=== PATIENT | female | born 1945 | race Caucasian/White ===

== ENCOUNTER 2018-02-11 18:12 | Emergency (ER) | payer MEDICARE ==
[2018-02-11 18:25] VITALS: BP 168/83; PULSE 86; TEMP 98; BMI 27.4
[2018-02-11] MEDS ORDERED: NAPROXEN 500 MG TABLET (FP) PO ONE (18:54)
[2018-02-11] MEDS ORDERED: NAPROXEN 500 MG TABLET (FP) ONE (18:55)
--- NOTE | 2018-02-11 19:04 | PDOC ---
History of Present Illness - General Chief Complaint: Pain Stated Complaint: KNEE PAIN Time Seen by Provider: 02/11/18 18:33 History Source: Patient Exam Limitations: Clinical Condition - History of Present Illness Initial Comments: 02/11/18 18:58 Patient with history of osteoporosis presented for evaluation of right knee pain status post twisting knee while getting off a van . Patient report feeling a popping sound in the right knee when she stepped down from getting off the van. report increased pain with ambulation. Denies fall. Timing/Duration: 1-3 hours Past History - Past Medical History Allergies/Adverse Reactions: Allergies Allergy/AdvReac Type Severity Reaction Status Date / Time No Known Allergies Allergy Verified 02/11/18 18:24 Home Medications: Ambulatory Orders Alendronate Na [Fosamax (Weekly)] 70 mg PO Q7D 04/16/14 Atorvastatin Ca [Lipitor] 20 mg PO HS 04/16/14 Calcium Carbonate [Caltrate 600] 600 mg PO DAILY 04/16/14 Gabapentin 300 mg PO DAILY 04/16/14 Calcium/Magnesium/Vit D3 [Calcium 500 mg Tablet] 1 each PO DAILY 04/29/15 Cholecalciferol (Vitamin D3) [Vitamin D3] 2,000 unit PO DAILY 04/29/15 FA/Mv,Ca,Iron,Min/Lycopene/Lut [Centrum Tablet] 1 each PO DAILY 04/29/15 [place]-3/Dha/Epa/Fish Oil [[place]-3 Fish Oil Softgel] 1 each PO DAILY 04/29/15 Ranitidine HCl [Zantac] 150 mg PO BID #0 tablet 04/29/15 Naproxen 500 mg PO BID PRN #20 tablet 02/11/18 Anemia: No Asthma: No Cancer: No Cardiac Disorders: No CVA: No COPD: No CHF: No Dementia: No Diabetes: No GI Disorders: Yes (GERD/POLYPS/HEMORRHOIDS) Disorders: No HTN: No Hypercholesterolemia: Yes Liver Disease: No Seizures: No Thyroid Disease: No - Surgical History Abdominal Surgery: No Appendectomy: No Cardiac Surgery: No Cholecystectomy: No Lung Surgery: No Neurologic Surgery: No Orthopedic Surgery: Yes (ROTATOR CUFF) - Suicide/Smoking/Psychosocial Hx Smoking History: Never smoked Hx Alcohol Use: No Drug/Substance Use Hx: No Substance Use Type: None Hx Substance Use Treatment: No Review of Systems - Review of Systems Able to Perform ROS?: Yes Is the patient limited Tongan proficient: No Constitutional: No: Weakness HEENTM: No: Double Vision Respiratory: No: Symptoms reported Cardiac (ROS): No: Symptoms Reported ABD/GI: No: Symptoms Reported Musculoskeletal: Yes: See HPI, Joint Pain (right knee), Muscle Pain (right knee) . No: Joint Swelling, Muscle Weakness, Joint Stiffness Neurological: No: Dizziness All Other Systems: Reviewed and Negative *Physical Exam - Vital Signs Last Vital Signs Temp Pulse Resp BP Pulse Ox 98 F 86 18 168/83 99 02/11/18 18:21 02/11/18 18:21 02/11/18 18:21 02/11/18 18:21 02/11/18 18:21 - Physical Exam Comments: 02/11/18 19:02 GENERAL: Well developed, well nourished. Awake and alert. No acute distress. CARDIOVASCULAR: Regular rate and rhythm. No murmurs, rubs, or gallops. PULMONARY: No evidence of respiratory distress. Lungs clear to auscultation bilaterally. No wheezing, rales or rhonchi. ABDOMINAL: Soft. Non-tender. Non-distended. No rebound or guarding. No organomegaly. Normoactive bowel sounds MUSCULOSKELETAL : mild tenderness over medila and lateral malleolus of right knee. No bony deformities EXTREMITIES: No cyanosis. No clubbing. No edema. No calf tenderness. NEUROLOGICAL: Alert, awake, appropriate. No motor deficits in the lower extremities. Gait with mild limping. PSYCHIATRIC: Cooperative. Good eye contact. Appropriate mood and affect. 02/11/18 19:03 General Appearance: Yes: Nourished, Appropriately Dressed. No: Apparent Distress Medical Decision Making - Medical Decision Making 02/11/18 19:04 Patient with history of osteoporosis presented for evaluation of right knee pain status post twisting knee while getting off a van. exam significant for mild tenderness to medial and lateral collateral ligament. x-ray of right knee shows no acute fracture, dislocation or soft tissue swelling naproxen 500mg PO given for pain right knee wrapped with jorden bandage patient discharged home on Naproxen with orthopedics follow-up *DC/Admit/Observation/Transfer Diagnosis at time of Disposition: Strain of right knee Qualifiers: Encounter type: initial encounter Qualified Code(s): S86.911A - Strain of unspecified muscle(s) and tendon(s) at lower leg level, right leg, initial encounter - Discharge Dispostion Disposition: HOME Condition at time of disposition: Stable Decision to Admit order: No - Prescriptions Prescriptions: Naproxen 500 mg PO BID PRN #20 tablet PRN Reason: knee pain - Referrals Referrals: Geeta Jorge MD [Primary Care Provider] - Curtis Overton MD [Staff Physician] - - Patient Instructions Printed Discharge Instructions: Knee Sprain, How to Use an Elastic Bandage- Knee Sprain Additional Instructions: Your x-ray was negative for fracture. Take prescribed medications as needed for pain. follow-up with referred orthopedics if pain persist for more than 4 days - Post Discharge Activity
== END 2018-02-11 19:29 | disposition home or self-care (01) ==
LOC: JERFT 18:12
DX: S86.811A Strain of other muscle(s) and tendon(s) at lower leg level, right leg, initial encounter (principal); V58.4XXA Person boarding or alighting a pick-up truck or van injured in noncollision transport accident, initial encounter; Y92.488 Other paved roadways as the place of occurrence of the external cause; Y93.89 Activity, other specified; Y99.8 Other external cause status; E78.00 Pure hypercholesterolemia, unspecified
CPT/HCPCS: 73562-TC-RT-FY; 99281-25

== ENCOUNTER 2019-04-27 18:18 | Emergency (ER) | payer MEDICARE ==
[2019-04-27 18:34] VITALS: BP 161/87; PULSE 84; TEMP 98.2; BMI 24.4
--- NOTE | 2019-04-27 18:46 | PDOC ---
History of Present Illness - General Chief Complaint: Cold Symptoms Stated Complaint: FEVER Time Seen by Provider: 04/27/19 18:31 History Source: Patient, Family - History of Present Illness Timing/Duration: reports: other Past History - Past Medical History Allergies/Adverse Reactions: Allergies Allergy/AdvReac Type Severity Reaction Status Date / Time No Known Allergies Allergy Verified 02/11/18 18:24 Home Medications: Ambulatory Orders Alendronate Na [Fosamax (Weekly)] 70 mg PO Q7D 04/16/14 Atorvastatin Ca [Lipitor] 20 mg PO HS 04/16/14 Calcium Carbonate [Caltrate 600] 600 mg PO DAILY 04/16/14 Gabapentin 300 mg PO DAILY 04/16/14 Calcium/Magnesium/Vit D3 [Calcium 500 mg Tablet] 1 each PO DAILY 04/29/15 Cholecalciferol (Vitamin D3) [Vitamin D3] 2,000 unit PO DAILY 04/29/15 FA/Mv,Ca,Iron,Min/Lycopene/Lut [Centrum Tablet] 1 each PO DAILY 04/29/15 [place]-3/Dha/Epa/Fish Oil [[place]-3 Fish Oil Softgel] 1 each PO DAILY 04/29/15 Ranitidine HCl [Zantac] 150 mg PO BID #0 tablet 04/29/15 Naproxen 500 mg PO BID PRN #20 tablet 02/11/18 Anemia: No Asthma: No Cancer: No Cardiac Disorders: No CVA: No COPD: No CHF: No Dementia: No Diabetes: No GI Disorders: Yes (GERD/POLYPS/HEMORRHOIDS) Disorders: No HTN: No Hypercholesterolemia: Yes Liver Disease: No Seizures: No Thyroid Disease: No - Surgical History Abdominal Surgery: No Appendectomy: No Cardiac Surgery: No Cholecystectomy: No Lung Surgery: No Neurologic Surgery: No Orthopedic Surgery: Yes (ROTATOR CUFF) - Immunization History Immunization Up to Date: No - Psycho Social/Smoking Cessation Hx Smoking History: Never smoked Have you smoked in the past 12 months: No Information on smoking cessation initiated: No Hx Alcohol Use: No Drug/Substance Use Hx: No Substance Use Type: None Hx Substance Use Treatment: No Review of Systems - Review of Systems Constitutional: Yes: Fever Respiratory: Yes: Cough. No: Shortness of Breath, Wheezing Cardiac (ROS): No: Chest Pain ABD/GI: No: Diarrhea, Nausea, Vomiting *Physical Exam - Vital Signs Last Vital Signs Temp Pulse Resp BP Pulse Ox 98.2 F 84 16 161/87 98 04/27/19 18:31 04/27/19 18:31 04/27/19 18:31 04/27/19 18:31 04/27/19 18:31 - Physical Exam General Appearance: Yes: Appropriately Dressed. No: Apparent Distress HEENT: positive: Normal ENT Inspection, Normal Voice, TMs Normal, Pharynx Normal. negative: Scleral Icterus (R), Scleral Icterus (L) Neck: positive: Supple. negative: Lymphadenopathy (R), Lymphadenopathy (L) Respiratory/Chest: positive: Lungs Clear, Normal Breath Sounds. negative: Respiratory Distress Cardiovascular: positive: Regular Rate, S1, S2 Integumentary: positive: Dry, Warm Neurologic: positive: Fully Oriented, Alert, Normal Mood/Affect ED Treatment Course - RADIOLOGY Radiology Studies Ordered: Category Date Time Status CHEST PA & LAT [RAD] Stat Radiology 04/27/19 18:43 Ordered Medical Decision Making - Medical Decision Making 04/27/19 18:44 73 yo F, h/o HTN, BIB family for cough and fever. Patient states she has had subjective fevers on and off for 2 weeks though no documented fever. Also with mild cough. No shortness of breath, chest pain or body aches. Seen in urgent care 6 days ago and completed a course of antibiotics for "a URI" per family members. No chest x-ray or flu flu swab done per family see exam M/l viral URI Exam wnl -Flu and CXR pending 04/27/19 19:33 Flu and cxr negative. Dc w/ PMD f/u Discharge - Discharge Information Problems reviewed: Yes Clinical Impression/Diagnosis: Viral URI Condition: Good Disposition: HOME - Follow up/Referral - Patient Discharge Instructions Patient Printed Discharge Instructions: DI for Viral Upper Respiratory Infection -- Adult Additional Instructions: CXR and flu were both negative Please follow up with your PMD - Post Discharge Activity
== END 2019-04-27 19:57 | disposition home or self-care (01) ==
LOC: JERFT 18:18
DX: J06.9 Acute upper respiratory infection, unspecified (principal); B97.89 Other viral agents as the cause of diseases classified elsewhere; Z87.19 Personal history of other diseases of the digestive system
CPT/HCPCS: 71046-TC-FY; 87804; 99281-25

== ENCOUNTER 2021-03-27 14:42 | Emergency (ER) | payer MEDICARE ==
[2021-03-27 14:51] VITALS: BP 150/81; PULSE 91; TEMP 99.1; BMI 29.7
[2021-03-27] MEDS ORDERED: ACETAMINOPHEN 500 MG TABLET (FP) PO ONE (16:32)
[2021-03-27] MEDS ORDERED: ACETAMINOPHEN 500 MG TABLET (FP) ONE (16:42)
[2021-03-27 17:43] LABS: EPI CELLS 16 /uL (0-25.1); HYALINE CASTS 1 /uL (0-3.1); PH,URINE 5.5 (5.0-8.0); URINE APPEARANCE CLEAR; URINE BACTERIA 14 /uL (0-1359); URINE BILIRUBIN NEGATIVE (NEGATIVE); URINE COLOR YELLOW; URINE GLUCOSE (UA) NEGATIVE (NEGATIVE); URINE KETONE 3+ (NEGATIVE); URINE LEUK ESTERASE NEGATIVE (NEGATIVE); URINE NITRITE NEGATIVE (NEGATIVE); URINE PROTEIN 1+ (NEGATIVE); URINE RBC 91 /uL (0-23.9); URINE UROBILINOGEN 0.2 mg/dL (0.2-1.0); URINE WBC 15 /uL (0-25.8)
[2021-03-27] MEDS ORDERED: FAMOTIDINE 20 MG TABLET PO ONE (18:01)
[2021-03-27] MEDS ORDERED: MAG HYDROX/AL HYDROX/SIMETH 30 ML UNIT-DOSE CUP PO ONE (18:01)
[2021-03-27] MEDS ORDERED: LIDOCAINE VISCOUS 2% ORAL/TOP 15 ML UNIT-DOSE CUP MM ONE (18:01)
[2021-03-27] MEDS ORDERED: FAMOTIDINE 20 MG TABLET ONE (18:09)
[2021-03-27] MEDS ORDERED: LIDOCAINE VISCOUS 2% ORAL/TOP 15 ML UNIT-DOSE CUP ONE (18:09)
[2021-03-27] MEDS ORDERED: MAG HYDROX/AL HYDROX/SIMETH 30 ML UNIT-DOSE CUP ONE (18:09)
== END 2021-03-27 21:11 | disposition home or self-care (01) ==
LOC: JER 14:42
DX: B34.9 Viral infection, unspecified (principal)
CPT/HCPCS: 71046-TC-FY; 81003; 87077; 87086; 87804; 99283-25; C9803; U0003; U0005

== ENCOUNTER 2022-04-07 14:14 | Emergency (ER) | payer MEDICARE ==
[2022-04-07 14:47] VITALS: BMI 29.9
[2022-04-07] MEDS ORDERED: MAG HYDROX/AL HYDROX/SIMETH -MYLANTA- ORAL SUSPENSION PO ONE (15:45)
[2022-04-07] MEDS ORDERED: FAMOTIDINE 20 MG/50 ML IVPB 20 MG/50 ML MG IVPB ONE ×2 (15:45→15:52)
[2022-04-07] MEDS ORDERED: ACETAMINOPHEN 1000 MG/100 ML BAG IVPB ONE (15:45)
[2022-04-07] MEDS ORDERED: ACETAMINOPHEN INJECTION 100 ML IVPB ONE (15:51)
[2022-04-07] MEDS ORDERED: MAG HYDROX/AL HYDROX/SIMETH 30 ML UNIT-DOSE CUP ONE (15:52)
[2022-04-07 16:37] LABS: HEMATOCRIT 46.1 % (32.4-45.2); HEMOGLOBIN 15.4 GM/dL (10.7-15.3); MCH 31.6 pg (25.7-33.7); MCHC 33.4 g/dl (32.0-36.0); MEAN CELL VOLUME 94.6 fl (80-96); PLATELET COUNT 255 10^3/uL (134-434); RBC 4.87 M/mm3 (3.60-5.2)
[2022-04-07 16:39] LABS: PH,URINE 5.5 (5.0-8.0); URINE APPEARANCE CLEAR; URINE BILIRUBIN NEGATIVE (NEGATIVE); URINE COLOR YELLOW; URINE GLUCOSE (UA) NEGATIVE (NEGATIVE); URINE KETONE TRACE (NEGATIVE); URINE LEUK ESTERASE NEGATIVE (NEGATIVE); URINE NITRITE NEGATIVE (NEGATIVE); URINE PROTEIN TRACE (NEGATIVE); URINE UROBILINOGEN 0.2 mg/dL (0.2-1.0)
[2022-04-07] MEDS ORDERED: SODIUM CHLORIDE 1,000 ML IV STA (16:45)
[2022-04-07 17:29] LABS: ALBUMIN 4.3 g/dl (3.4-5.0); CALCIUM 9.5 mg/dL (8.5-10.1)
[2022-04-07 17:32] LABS: CREATININE 1.1 mg/dL (0.55-1.3)
[2022-04-07 17:34] LABS: BILIRUBIN,TOTAL 0.6 mg/dL (0.2-1); TOT PROT 8.4 g/dl (6.4-8.2)
[2022-04-07 21:00] VITALS: BP 143/81; PULSE 85; RESP 18; TEMP 99.1
== END 2022-04-07 21:25 | disposition home or self-care (01) ==
LOC: JER 14:14
PROC: 3E033GC Introduction of Other Therapeutic Substance into Peripheral Vein, Percutaneous Approach (ICD-10-PCS; principal; 2022-04-07)
DX: K52.9 Noninfective gastroenteritis and colitis, unspecified (principal)
CPT/HCPCS: 0241U-QW; 36415; 71046-TC-FY; 80053; 81003; 83690; 84484; 85025; 87077; 87086; 93005; 93010; 96361; 96365; 96375; 99285-25

== ENCOUNTER 2022-12-05 13:55 | Emergency (ER) | payer OTHER ==
[2022-12-05 14:01] VITALS: BP 169/72; PULSE 77; RESP 20; TEMP 98.1; BMI 27.8
[2022-12-05] MEDS ORDERED: ACETAMINOPHEN 1000 MG/100 ML BAG IVPB ONE (14:36)
[2022-12-05] MEDS ORDERED: SODIUM CHLORIDE 0.9% 500 ML INFUS.BAG IV ONE (14:36)
[2022-12-05] MEDS ORDERED: ONDANSETRON 4 MG/2 ML VIAL IVPB ONE (14:36)
[2022-12-05] MEDS ORDERED: FAMOTIDINE 20 MG/50 ML IVPB 20 MG/50 ML MG IVPB ONE (14:37)
[2022-12-05] MEDS ORDERED: ACETAMINOPHEN INJECTION 100 ML IVPB ONE (14:48)
[2022-12-05] MEDS ORDERED: FAMOTIDINE 10 MG/ML VIAL IVPB ONE (14:48)
[2022-12-05] MEDS ORDERED: ONDANSETRON 4 MG/2 ML VIAL ONE (14:48)
[2022-12-05 14:59] LABS: BASO % 0.4 % (0-2.0); EOS % 0.3 % (0-4.5); HEMATOCRIT 40.8 % (32.4-45.2); HEMOGLOBIN 13.8 GM/dL (10.7-15.3); LYMPH % 12.9 % (8-40); MCH 31.4 pg (25.7-33.7); MCHC 33.7 g/dl (32.0-36.0); MEAN CELL VOLUME 93.1 fl (80-96); MEAN PLT VOLUME 8.1 fl (7.5-11.1); MONO % 5.9 % (3.8-10.2); NEUT % 80.5 % (42.8-82.8); PLATELET COUNT 236 10^3/uL (134-434); RBC 4.38 M/mm3 (3.60-5.2); RDW 13.2 % (11.6-15.6); WHITE BLOOD COUNT 9.2 K/mm3 (4.0-10.0)
[2022-12-05 15:21] LABS: POTASSIUM 4.1 mmol/L (3.5-5.1)
[2022-12-05 15:24] LABS: ALBUMIN 3.8 g/dl (3.4-5.0); BLOOD UREA NITROGEN 17.9 mg/dL (7-18); MAGNESIUM 2.2 mg/dL (1.8-2.4)
[2022-12-05 15:27] LABS: CREATININE 0.9 mg/dL (0.55-1.3)
[2022-12-05 15:28] LABS: BILIRUBIN,TOTAL 0.5 mg/dL (0.2-1)
[2022-12-05 15:29] LABS: TOT PROT 7.4 g/dl (6.4-8.2)
[2022-12-05 16:33] LABS: URINE APPEARANCE CLEAR; URINE BILIRUBIN NEGATIVE (NEGATIVE); URINE COLOR YELLOW; URINE GLUCOSE (UA) NEGATIVE (NEGATIVE); URINE KETONE 1+ (NEGATIVE); URINE LEUK ESTERASE NEGATIVE (NEGATIVE); URINE NITRITE NEGATIVE (NEGATIVE); URINE PROTEIN NEGATIVE (NEGATIVE); URINE UROBILINOGEN 0.2 mg/dL (0.2-1.0)
== END 2022-12-05 18:24 | disposition home or self-care (01) ==
LOC: JER 13:55
PROC: 3E033GC Introduction of Other Therapeutic Substance into Peripheral Vein, Percutaneous Approach (ICD-10-PCS; principal; 2022-12-05)
PROC: 3E033GC Introduction of Other Therapeutic Substance into Peripheral Vein, Percutaneous Approach (ICD-10-PCS; 2022-12-05)
PROC: 3E033NZ Introduction of Analgesics, Hypnotics, Sedatives into Peripheral Vein, Percutaneous Approach (ICD-10-PCS; 2022-12-05)
DX: R11.2 Nausea with vomiting, unspecified (principal); R10.13 Epigastric pain; R74.8 Abnormal levels of other serum enzymes; R19.7 Diarrhea, unspecified; R63.8 Other symptoms and signs concerning food and fluid intake; Z20.822 Contact with and (suspected) exposure to COVID-19
CPT/HCPCS: 0241U-QW; 36415; 71045-TC-FY; 74177-TC; 80053; 81003; 83690; 83735; 84484; 85025; 86850; 86900; 86901; 87086; 93005; 93010; 99285-25; Q9967

== ENCOUNTER 2022-12-06 14:13 | Emergency (ER) | payer OTHER ==
[2022-12-06 14:23] VITALS: BP 159/74; PULSE 74; RESP 16; TEMP 98.1; BMI 24.4
[2022-12-06] MEDS ORDERED: ONDANSETRON *ODT* 4 MG TABLET SL ONE (17:27)
[2022-12-06] MEDS ORDERED: ONDANSETRON *ODT* 4 MG TABLET ONE (17:30)
[2022-12-06] MEDS ORDERED: ONDANSETRON 4 MG/2 ML VIAL IVPUSH ONE (17:32)
[2022-12-06] MEDS ORDERED: ONDANSETRON 4 MG/2 ML VIAL ONE (18:03)
[2022-12-06 18:45] LABS: BASO % 0.2 % (0-2.0); HEMATOCRIT 40.1 % (32.4-45.2); HEMOGLOBIN 13.5 GM/dL (10.7-15.3); LYMPH % 8.8 % (8-40); MCH 31.7 pg (25.7-33.7); MCHC 33.5 g/dl (32.0-36.0); MEAN CELL VOLUME 94.6 fl (80-96); MEAN PLT VOLUME 8.8 fl (7.5-11.1); MONO % 5.3 % (3.8-10.2); NEUT % 85.7 % (42.8-82.8); PLATELET COUNT 222 10^3/uL (134-434); RBC 4.24 M/mm3 (3.60-5.2); RDW 12.7 % (11.6-15.6); WHITE BLOOD COUNT 10.8 K/mm3 (4.0-10.0)
[2022-12-06 19:05] LABS: POTASSIUM 4.1 mmol/L (3.5-5.1)
[2022-12-06 19:09] LABS: BLOOD UREA NITROGEN 11.3 mg/dL (7-18); MAGNESIUM 2.2 mg/dL (1.8-2.4)
[2022-12-06 19:13] LABS: BILIRUBIN,TOTAL 0.4 mg/dL (0.2-1); TOT PROT 7.5 g/dl (6.4-8.2)
[2022-12-06 19:26] LABS: CREATININE 0.8 mg/dL (0.55-1.3)
== END 2022-12-06 21:02 | disposition home or self-care (01) ==
LOC: JER 14:13
PROC: 3E033GC Introduction of Other Therapeutic Substance into Peripheral Vein, Percutaneous Approach (ICD-10-PCS; principal; 2022-12-06)
DX: R11.2 Nausea with vomiting, unspecified (principal); R19.7 Diarrhea, unspecified; R42 Dizziness and giddiness; R10.13 Epigastric pain
CPT/HCPCS: 36415; 80053; 83690; 83735; 84484; 85025; 93005; 93010; 99284-25; Q0162

== ENCOUNTER 2024-02-01 16:33 | Emergency (ER) | payer OTHER ==
[2024-02-01 16:42] VITALS: BP 139/79; PULSE 81; RESP 18; TEMP 98.2; BMI 29.0
[2024-02-01] MEDS ORDERED: METOCLOPRAMIDE HCL INJECTION 10 MG/2 ML VIAL ONE (17:52)
[2024-02-01] MEDS ORDERED: MECLIZINE HCL 12.5 MG TABLET ONE (17:52)
[2024-02-01] MEDS ORDERED: MAG HYDROX/AL HYDROX/SIMETH 30 ML UNIT-DOSE CUP ONE (17:53)
[2024-02-01] MEDS ORDERED: FAMOTIDINE 20 MG/50 ML IVPB 20 MG/50 ML MG IVPB ONE (17:53)
[2024-02-01 18:00] LABS: EOS % 1.3 % (0-4.5); HEMATOCRIT 41.7 % (32.4-45.2); HEMOGLOBIN 14.1 GM/dL (10.7-15.3); LYMPH % 40.1 % (8-40); MCH 31.4 pg (25.7-33.7); MCHC 33.8 g/dl (32.0-36.0); MEAN CELL VOLUME 92.8 fl (80-96); MEAN PLT VOLUME 8.2 fl (7.5-11.1); MONO % 10.2 % (3.8-10.2); NEUT % 47.4 % (42.8-82.8); PLATELET COUNT 252 10^3/uL (134-434); RBC 4.49 M/mm3 (3.60-5.2); RDW 13.1 % (11.6-15.6); WHITE BLOOD COUNT 5.8 K/mm3 (4.0-10.0)
[2024-02-01] MEDS: MECLIZINE HCL 12.5 MG TABLET PO ONE (18:08)
[2024-02-01] MEDS: FAMOTIDINE 20 MG/50 ML IVPB 20 MG/50 ML MG IVPB ONE (18:09)
[2024-02-01] MEDS: METOCLOPRAMIDE HCL INJECTION 10 MG/2 ML VIAL IVPB ONE (18:09)
[2024-02-01] MEDS: MAG HYDROX/AL HYDROX/SIMETH 30 ML UNIT-DOSE CUP PO ONE (18:09)
[2024-02-01 18:17] LABS: POTASSIUM 4.5 mmol/L (3.5-5.1)
[2024-02-01 18:19] LABS: CALCIUM 9.8 mg/dL (8.5-10.1)
[2024-02-01 18:20] LABS: ALBUMIN 3.9 g/dl (3.4-5.0); BLOOD UREA NITROGEN 16.7 mg/dL (7-18); MAGNESIUM 2.6 mg/dL (1.8-2.4)
[2024-02-01 18:24] LABS: BILIRUBIN,TOTAL 0.5 mg/dL (0.2-1)
[2024-02-01 18:25] LABS: TOT PROT 7.3 g/dl (6.4-8.2)
[2024-02-01 19:13] LABS: HIV INTERPRETATION NEGATIVE (NEGATIVE)
== END 2024-02-01 22:24 | disposition home or self-care (01) ==
LOC: JER 16:33
PROC: 3E033GC Introduction of Other Therapeutic Substance into Peripheral Vein, Percutaneous Approach (ICD-10-PCS; principal; 2024-02-01)
PROC: 3E033GC Introduction of Other Therapeutic Substance into Peripheral Vein, Percutaneous Approach (ICD-10-PCS; 2024-02-01)
DX: R10.13 Epigastric pain (principal); K80.20 Calculus of gallbladder without cholecystitis without obstruction; R19.7 Diarrhea, unspecified; R42 Dizziness and giddiness; R53.1 Weakness
CPT/HCPCS: 36415; 71045-TC-FY; 74177-TC; 76705-TC; 80053; 83690; 83735; 84484; 85025; 86803; 87389; 93005; 93010; 96365; 96375; 99285-25; Q9967

== ENCOUNTER 2024-02-05 00:08 | Day surgery (SDC) | payer OTHER ==
[2024-02-05] MEDS ORDERED: ACETAMINOPHEN INJECTION 100 ML ONE (00:49)
[2024-02-05] MEDS: ACETAMINOPHEN 1000 MG/100 ML BAG IVPB ONE ×2 (01:23→13:09)
[2024-02-05 01:45] LABS: BASO % 0.5 % (0-2.0); EOS % 2.9 % (0-4.5); HEMATOCRIT 39.7 % (32.4-45.2); HEMOGLOBIN 13.5 GM/dL (10.7-15.3); LYMPH % 35.6 % (8-40); MCH 32.1 pg (25.7-33.7); MCHC 34.1 g/dl (32.0-36.0); MEAN PLT VOLUME 7.9 fl (7.5-11.1); MONO % 11.8 % (3.8-10.2); NEUT % 49.2 % (42.8-82.8); PLATELET COUNT 220 10^3/uL (134-434); RBC 4.22 M/mm3 (3.60-5.2); RDW 12.9 % (11.6-15.6); WHITE BLOOD COUNT 5.1 K/mm3 (4.0-10.0)
[2024-02-05 02:11] LABS: POTASSIUM 3.8 mmol/L (3.5-5.1)
[2024-02-05 02:14] LABS: ALBUMIN 3.8 g/dl (3.4-5.0); BLOOD UREA NITROGEN 11.1 mg/dL (7-18); CALCIUM 8.7 mg/dL (8.5-10.1); MAGNESIUM 2.1 mg/dL (1.8-2.4)
[2024-02-05 02:17] LABS: CREATININE 0.9 mg/dL (0.55-1.3)
[2024-02-05 02:18] LABS: BILIRUBIN,TOTAL 0.4 mg/dL (0.2-1)
[2024-02-05 02:19] LABS: TOT PROT 6.9 g/dl (6.4-8.2)
[2024-02-05] MEDS: DEXTROSE 5%-0.45% SALINE 500 ML IV SCH (03:56)
[2024-02-05 05:50] VITALS: BMI 28.4
[2024-02-05] MEDS ORDERED: ACETAMINOPHEN 1000 MG/100 ML BAG IVPB PRN (07:00)
[2024-02-05 09:26] LABS: EPI CELLS 26 /uL (0-25.1); HYALINE CASTS 1 /uL (0-3.1); PH,URINE 7.5 (5.0-8.0); URINE APPEARANCE CLEAR; URINE BACTERIA 495 /uL (0-1359); URINE BILIRUBIN NEGATIVE (NEGATIVE); URINE COLOR YELLOW; URINE GLUCOSE (UA) NEGATIVE (NEGATIVE); URINE KETONE NEGATIVE (NEGATIVE); URINE LEUK ESTERASE 2+ (NEGATIVE); URINE NITRITE NEGATIVE (NEGATIVE); URINE PROTEIN NEGATIVE (NEGATIVE); URINE RBC 5 /uL (0-23.9); URINE UROBILINOGEN 0.2 mg/dL (0.2-1.0); URINE WBC 16 /uL (0-25.8)
[2024-02-05 09:57] LABS: BASO % 0.6 % (0-2.0); EOS % 3.6 % (0-4.5); HEMATOCRIT 40.4 % (32.4-45.2); HEMOGLOBIN 13.6 GM/dL (10.7-15.3); LYMPH % 36.9 % (8-40); MCH 31.5 pg (25.7-33.7); MCHC 33.5 g/dl (32.0-36.0); MEAN CELL VOLUME 93.8 fl (80-96); MEAN PLT VOLUME 8.1 fl (7.5-11.1); MONO % 11.6 % (3.8-10.2); NEUT % 47.3 % (42.8-82.8); PLATELET COUNT 218 10^3/uL (134-434); RBC 4.31 M/mm3 (3.60-5.2); RDW 12.8 % (11.6-15.6); WHITE BLOOD COUNT 3.9 K/mm3 (4.0-10.0)
[2024-02-05] MEDS: HEPARIN NA (PORCINE) 5,000 UNITS/ML 1ML VIAL SQ SCH ×2 (10:33→21:28)
[2024-02-05] MEDS ORDERED: MIDAZOLAM HCL 2 MG/2 ML SINGLE DOSE VIAL ONE (10:40)
[2024-02-05] MEDS ORDERED: PROPOFOL 20 ML ONE (10:40)
[2024-02-05] MEDS ORDERED: ROCURONIUM BROMIDE 50 MG/5 ML SYRINGE ONE (10:40)
[2024-02-05] MEDS ORDERED: cefOXitin SODIUM 2 GM VIAL (RESTRICTED TO ID) IVPB ONE (10:42)
[2024-02-05] MEDS ORDERED: BUPIVACAINE HCL/PF 0.25% (2.5MG/ML) 10 ML VIAL ONE (10:42)
[2024-02-05] MEDS ORDERED: HEPARIN NA (PORCINE) 5,000 UNITS/ML 1ML VIAL ONE (10:42)
[2024-02-05 11:22] LABS: POTASSIUM 3.5 mmol/L (3.5-5.1)
[2024-02-05 11:25] LABS: CALCIUM 8.8 mg/dL (8.5-10.1)
[2024-02-05 11:26] LABS: BLOOD UREA NITROGEN 7.4 mg/dL (7-18)
[2024-02-05] MEDS: cefOXitin SODIUM 2 GM VIAL (RESTRICTED TO ID) IVPB ONE ×2 (11:28)
[2024-02-05 11:29] LABS: CREATININE 0.8 mg/dL (0.55-1.3)
[2024-02-05] MEDS ORDERED: GLYCOPYRROLATE 0.2 MG/1 ML VIAL ONE (11:33)
[2024-02-05] MEDS ORDERED: KETOROLAC TROMETHAMINE 30 MG/1 ML VIAL ONE (11:33)
[2024-02-05] MEDS ORDERED: DEXAMETHASONE SOD PHOSPHATE 4 MG/1 ML VIAL ONE (11:33)
[2024-02-05] MEDS ORDERED: ONDANSETRON 4 MG/2 ML VIAL ONE (11:33)
[2024-02-05] MEDS: BUPIVACAINE HCL/PF 0.25% (2.5MG/ML) 10 ML VIAL IJ ONE ×2 (11:41)
[2024-02-05] MEDS ORDERED: oxyCODONE HCL 5 MG TABLET PO PRN (12:30)
[2024-02-05] MEDS: LACTATED RINGERS SOLUTION 1,000 ML IV SCH (12:30)
[2024-02-05] MEDS ORDERED: LACTATED RINGERS SOLUTION 1,000 ML IV SCH (12:30)
[2024-02-05] MEDS: ACETAMINOPHEN INJECTION 100 ML ONE (13:09)
[2024-02-05] MEDS: ACETAMINOPHEN 325 MG TABLET (FP) PO SCH (18:28)
[2024-02-05] MEDS: ONDANSETRON 4 MG/2 ML VIAL IVPUSH PRN (18:28)
[2024-02-06 10:09] LABS: HEMATOCRIT 37.3 % (32.4-45.2); HEMOGLOBIN 12.9 GM/dL (10.7-15.3); MCH 32.1 pg (25.7-33.7); MCHC 34.5 g/dl (32.0-36.0); MEAN CELL VOLUME 92.9 fl (80-96); MEAN PLT VOLUME 8.5 fl (7.5-11.1); PLATELET COUNT 218 10^3/uL (134-434); RBC 4.01 M/mm3 (3.60-5.2); RDW 12.9 % (11.6-15.6); WHITE BLOOD COUNT 10.9 K/mm3 (4.0-10.0)
[2024-02-06 10:38] LABS: POTASSIUM 4.1 mmol/L (3.5-5.1)
[2024-02-06 10:40] LABS: CALCIUM 9.4 mg/dL (8.5-10.1)
[2024-02-06 10:41] LABS: ALBUMIN 3.5 g/dl (3.4-5.0); BLOOD UREA NITROGEN 8.6 mg/dL (7-18)
[2024-02-06 10:45] LABS: BILIRUBIN,TOTAL 0.4 mg/dL (0.2-1)
[2024-02-06 10:46] LABS: TOT PROT 6.6 g/dl (6.4-8.2)
[2024-02-06 13:56] VITALS: BP 115/56; PULSE 63; RESP 20; TEMP 98.4
== END 2024-02-06 14:47 | disposition home or self-care (01) ==
LOC: JER 00:08 → JERBED 02:34 → UNDOADMOB 02:34 → J6S 05:31 → JERBED 05:31 → J6S 13:43 → JASUSAT 13:43
PROVIDERS: ATTEND Family Medicine
PROC: 0FT44ZZ Resection of Gallbladder, Percutaneous Endoscopic Approach (ICD-10-PCS; principal; 2024-02-05 18:30)
DX: K81.0 Acute cholecystitis (principal); I10 Essential (primary) hypertension; E78.5 Hyperlipidemia, unspecified; K21.9 Gastro-esophageal reflux disease without esophagitis; F03.90 Unspecified dementia, unspecified severity, without behavioral disturbance, psychotic disturbance, mood disturbance, and anxiety; R10.13 Epigastric pain; A08.8 Other specified intestinal infections; R21 Rash and other nonspecific skin eruption
CPT/HCPCS: 36415; 76705-TC; 80048; 80053; 81003; 83690; 83735; 85025; 85027; 87086; 87186; 94010; 94760; 97116-GP; 97161-GP; 99285-25; J0131; J1644

== ENCOUNTER 2024-02-25 10:13 | Emergency (ER) | payer OTHER ==
[2024-02-25 10:17] VITALS: BP 126/72; PULSE 78; RESP 18; TEMP 98.4; BMI 23.7
[2024-02-25] MEDS ORDERED: ACETAMINOPHEN INJECTION 100 ML ONE (10:48)
[2024-02-25] MEDS: ACETAMINOPHEN 1000 MG/100 ML BAG IVPB ONE (11:22)
[2024-02-25] MEDS: LACTATED RINGERS SOLUTION 1000 ML INFUS.BAG IV ONE (11:22)
[2024-02-25 11:27] LABS: BASO % 0.3 % (0-2.0); HEMATOCRIT 39.3 % (32.4-45.2); HEMOGLOBIN 13.5 GM/dL (10.7-15.3); LYMPH % 8.5 % (8-40); MCH 31.8 pg (25.7-33.7); MCHC 34.3 g/dl (32.0-36.0); MEAN CELL VOLUME 92.8 fl (80-96); MEAN PLT VOLUME 8.2 fl (7.5-11.1); MONO % 6.7 % (3.8-10.2); NEUT % 82.5 % (42.8-82.8); PLATELET COUNT 265 10^3/uL (134-434); RBC 4.23 M/mm3 (3.60-5.2); RDW 13.3 % (11.6-15.6)
[2024-02-25 12:14] LABS: POTASSIUM 4.4 mmol/L (3.5-5.1)
[2024-02-25 12:16] LABS: CALCIUM 8.7 mg/dL (8.5-10.1)
[2024-02-25 12:17] LABS: ALBUMIN 3.4 g/dl (3.4-5.0)
[2024-02-25 12:21] LABS: BILIRUBIN,TOTAL 0.8 mg/dL (0.2-1); TOT PROT 6.7 g/dl (6.4-8.2)
[2024-02-25] MEDS ORDERED: ONDANSETRON 4 MG/2 ML VIAL ONE (12:53)
[2024-02-25] MEDS: ONDANSETRON 4 MG/2 ML VIAL IVPUSH ONE (13:06)
[2024-02-25 13:12] LABS: URINE APPEARANCE CLEAR; URINE BILIRUBIN NEGATIVE (NEGATIVE); URINE COLOR YELLOW; URINE GLUCOSE (UA) NEGATIVE (NEGATIVE); URINE KETONE NEGATIVE (NEGATIVE); URINE LEUK ESTERASE 2+ (NEGATIVE); URINE NITRITE NEGATIVE (NEGATIVE); URINE PROTEIN NEGATIVE (NEGATIVE); URINE UROBILINOGEN 0.2 mg/dL (0.2-1.0)
[2024-02-25 13:15] LABS: EPI CELLS 20 /uL (0-25.1); HYALINE CASTS 0 /uL (0-3.1); URINE BACTERIA 1382 /uL (0-1359); URINE RBC 19 /uL (0-23.9); URINE WBC 31 /uL (0-25.8)
== END 2024-02-25 14:19 | disposition home or self-care (01) ==
LOC: JER 10:13
PROC: 3E033NZ Introduction of Analgesics, Hypnotics, Sedatives into Peripheral Vein, Percutaneous Approach (ICD-10-PCS; principal; 2024-02-25)
PROC: 3E033GC Introduction of Other Therapeutic Substance into Peripheral Vein, Percutaneous Approach (ICD-10-PCS; 2024-02-25)
DX: R11.2 Nausea with vomiting, unspecified (principal); R19.7 Diarrhea, unspecified; R53.1 Weakness; Z20.822 Contact with and (suspected) exposure to COVID-19
CPT/HCPCS: 0241U-QW; 36415; 80053; 81003; 83605; 83690; 85025; 87086; 87186; 93005; 93010; 96374; 96375; 99284-25; J0131

== ENCOUNTER 2024-02-26 14:27 | Inpatient (IN) | payer OTHER ==
[2024-02-26] MEDS: LACTATED RINGERS SOLUTION 1000 ML INFUS.BAG IV ONE (16:02)
[2024-02-26 16:09] LABS: BASO % 0.9 % (0-2.0); EOS % 3.4 % (0-4.5); HEMOGLOBIN 12.8 GM/dL (10.7-15.3); LYMPH % 45.5 % (8-40); MCH 31.2 pg (25.7-33.7); MCHC 32.9 g/dl (32.0-36.0); MEAN CELL VOLUME 94.8 fl (80-96); MEAN PLT VOLUME 7.8 fl (7.5-11.1); MONO % 15.4 % (3.8-10.2); NEUT % 34.8 % (42.8-82.8); PLATELET COUNT 244 10^3/uL (134-434); RBC 4.12 M/mm3 (3.60-5.2); WHITE BLOOD COUNT 3.3 K/mm3 (4.0-10.0)
[2024-02-26 16:19] LABS: POTASSIUM 3.8 mmol/L (3.5-5.1)
[2024-02-26 16:21] LABS: CALCIUM 8.9 mg/dL (8.5-10.1)
[2024-02-26 16:22] LABS: ALBUMIN 3.5 g/dl (3.4-5.0); BLOOD UREA NITROGEN 9.2 mg/dL (7-18); MAGNESIUM 2.2 mg/dL (1.8-2.4)
[2024-02-26 16:25] VITALS: RESP 18
[2024-02-26 16:25] LABS: CREATININE 0.9 mg/dL (0.55-1.3)
[2024-02-26 16:26] LABS: BILIRUBIN,TOTAL 0.3 mg/dL (0.2-1); TOT PROT 6.7 g/dl (6.4-8.2)
[2024-02-26] MEDS: LACTATED RINGERS SOLUTION 1,000 ML/1,000 ML INFUS.BAG IV SCH (17:32)
[2024-02-26 18:27] VITALS: BMI 25.9
[2024-02-27] MEDS: ACETAMINOPHEN 500 MG TABLET (FP) PO ONE (04:21)
[2024-02-27 08:48] LABS: BASO % 0.5 % (0-2.0); EOS % 2.5 % (0-4.5); HEMATOCRIT 38.9 % (32.4-45.2); LYMPH % 49.7 % (8-40); MCH 31.3 pg (25.7-33.7); MCHC 33.5 g/dl (32.0-36.0); MEAN CELL VOLUME 93.5 fl (80-96); MEAN PLT VOLUME 8.1 fl (7.5-11.1); NEUT % 31.3 % (42.8-82.8); PLATELET COUNT 234 10^3/uL (134-434); RBC 4.17 M/mm3 (3.60-5.2); RDW 13.1 % (11.6-15.6); WHITE BLOOD COUNT 3.4 K/mm3 (4.0-10.0)
[2024-02-27 09:02] LABS: POTASSIUM 4.1 mmol/L (3.5-5.1)
[2024-02-27 09:10] LABS: ALBUMIN 3.3 g/dl (3.4-5.0); CALCIUM 9.2 mg/dL (8.5-10.1); MAGNESIUM 2.2 mg/dL (1.8-2.4)
[2024-02-27] MEDS: LOSARTAN POTASSIUM 50 MG TABLET PO SCH (09:10)
[2024-02-27] MEDS: RIVASTIGMINE TARTRATE 1.5 MG CAPSULE PO SCH (09:10)
[2024-02-27 09:11] LABS: BLOOD UREA NITROGEN 7.7 mg/dL (7-18)
[2024-02-27 09:13] LABS: PHOSPHOROUS 3.8 mg/dL (2.5-4.9)
[2024-02-27 09:14] LABS: CREATININE 0.8 mg/dL (0.55-1.3)
[2024-02-27 09:15] LABS: BILIRUBIN,TOTAL 0.4 mg/dL (0.2-1); TOT PROT 6.5 g/dl (6.4-8.2)
[2024-02-27] MEDS ORDERED: RIVASTIGMINE TARTRATE 1.5 MG CAPSULE PO SCH (10:00)
[2024-02-27] MEDS: ONDANSETRON *ODT* 4 MG TABLET SL PRN (12:27)
[2024-02-27] MEDS: ACETAMINOPHEN 1000 MG/100 ML BAG IVPB PRN (13:37)
[2024-02-27] MEDS: FAMOTIDINE 20 MG/50 ML IVPB 20 MG/50 ML MG IVPB SCH (21:12)
[2024-02-28] MEDS: PROMETHAZINE HCL 25 MG/1 ML VIAL IVPB ONE (00:32)
[2024-02-29] MEDS: MECLIZINE HCL 12.5 MG TABLET PO ONE (00:55)
[2024-02-29] MEDS: ACETAMINOPHEN 1000 MG/100 ML BAG IVPB ONE (00:58)
[2024-02-29] MEDS: PANTOPRAZOLE SODIUM 40 MG VIAL IVPUSH SCH (21:29)
[2024-02-29] MEDS ORDERED: PANTOPRAZOLE SODIUM 40 MG in SODIUM CHLORIDE 100 ML IVPB SCH (22:00)
[2024-03-01 08:56] VITALS: BP 157/75; PULSE 69; TEMP 98.6
[2024-03-01 16:46] LABS: BASO % 0.6 % (0-2.0); EOS % 2.6 % (0-4.5); HEMATOCRIT 39.7 % (32.4-45.2); HEMOGLOBIN 13.3 GM/dL (10.7-15.3); LYMPH % 41.8 % (8-40); MCH 31.3 pg (25.7-33.7); MCHC 33.7 g/dl (32.0-36.0); MONO % 11.5 % (3.8-10.2); NEUT % 43.5 % (42.8-82.8); PLATELET COUNT 252 10^3/uL (134-434); RBC 4.26 M/mm3 (3.60-5.2); RDW 12.7 % (11.6-15.6); WHITE BLOOD COUNT 6.1 K/mm3 (4.0-10.0)
[2024-03-01 17:06] LABS: POTASSIUM 3.3 mmol/L (3.5-5.1)
[2024-03-01 17:08] LABS: CALCIUM 9.3 mg/dL (8.5-10.1)
[2024-03-01 17:09] LABS: ALBUMIN 3.4 g/dl (3.4-5.0); BLOOD UREA NITROGEN 7.3 mg/dL (7-18)
[2024-03-01 17:12] LABS: CREATININE 0.9 mg/dL (0.55-1.3)
[2024-03-01 17:13] LABS: BILIRUBIN,TOTAL 0.4 mg/dL (0.2-1)
[2024-03-01 17:14] LABS: TOT PROT 6.8 g/dl (6.4-8.2)
== END 2024-03-01 18:46 | disposition home or self-care (01) | DRG 392 ==
LOC: JER 14:27 → JERBED 15:25 → INTOOBSV 15:25 → UNDOADMOB 15:25 → JERBED 16:32 → J6S 17:25 → OBSVTOIN 22:19 → J6S 02-28 11:30
PROVIDERS: ADMIT Family Medicine; ATTEND Family Medicine
DX: R19.7 Diarrhea, unspecified (principal); I10 Essential (primary) hypertension; E78.5 Hyperlipidemia, unspecified; F03.90 Unspecified dementia, unspecified severity, without behavioral disturbance, psychotic disturbance, mood disturbance, and anxiety; K21.9 Gastro-esophageal reflux disease without esophagitis
CPT/HCPCS: 0241U-QW; 36415; 71045-TC-FY; 74177-TC; 80053; 83690; 83735; 84100; 85025; 87045; 87046; 87324; 87449; 93005; 93010; 97116-GP; 97161-GP; 99285-25; G0378; J0131; Q0162